=== PATIENT | male | born 1995 | race Two or more races ===

== ENCOUNTER 2018-03-04 12:11 | Emergency (ER) | payer OTHER ==
[~2018-03-04] VITALS: Ht 162.6 cm; Wt 54.9 kg
== END 2018-03-04 15:37 | disposition home or self-care (01) ==
LOC: ER 12:11
DX: K29.00 Acute gastritis without bleeding (principal)

== ENCOUNTER 2018-11-17 17:29 | Emergency (ER) | payer OTHER ==
[~2018-11-17] VITALS: Ht 167.6 cm; Wt 54.4 kg
== END 2018-11-17 21:16 | disposition home or self-care (01) ==
LOC: ER 17:29
DX: J06.9 Acute upper respiratory infection, unspecified (principal)

== ENCOUNTER 2019-06-08 10:55 | Emergency (ER) | payer OTHER ==
[~2019-06-08] VITALS: Ht 170.2 cm; Wt 51.7 kg
== END 2019-06-08 12:26 | disposition home or self-care (01) ==
LOC: ER 10:55
DX: J06.9 Acute upper respiratory infection, unspecified (principal)

== ENCOUNTER → 2019-06-18 | Emergency (ER) | payer OTHER ==
[~2019-06-18] VITALS: Ht 167.6 cm; Wt 59.0 kg
== END | disposition left against medical advice (07) ==
LOC: ER 09:32
DX: Z53.20 Procedure and treatment not carried out because of patient's decision for unspecified reasons (principal)

== ENCOUNTER 2021-01-19 13:25 | Emergency (ER) | payer OTHER ==
[~2021-01-19] VITALS: Ht 170.2 cm; Wt 53.5 kg
[2021-01-19] MEDS ORDERED: CIPROFLOXACIN500 MG PO (18:56)
[2021-01-19] MEDS ORDERED: KETO10TA2 PO (18:56)
[2021-01-19] MEDS ORDERED: TAMS0.4C PO (18:56)
== END 2021-01-19 19:05 | disposition home or self-care (01) ==
LOC: ER 13:25
DX: N20.1 Calculus of ureter (principal); M54.6 Pain in thoracic spine

== ENCOUNTER 2022-07-28 22:44 | Emergency (ER) | payer OTHER ==
[~2022-07-28] VITALS: Ht 170.2 cm; Wt 59.0 kg
[~2022-07-28 22:44] MED LIST: CIPROFLOXACIN500 MG PO; KETO10TA2 PO; TAMS0.4C PO
== END 2022-07-29 02:55 | disposition home or self-care (01) ==
LOC: ER 22:44
DX: R10.84 Generalized abdominal pain (principal)

== ENCOUNTER 2022-10-27 11:05 | Emergency (ER) | payer OTHER ==
[~2022-10-27] VITALS: Ht 177.8 cm; Wt 59.4 kg
== END 2022-10-27 15:23 | disposition home or self-care (01) ==
LOC: ER 11:05
DX: K29.70 Gastritis, unspecified, without bleeding (principal)